=== PATIENT | male | born 1955 | race Caucasian/White ===

== ENCOUNTER 2024-10-01 06:52 | Day surgery (SDC) | payer OTHER, SELFPAY | END 2024-10-01 09:00 | disposition home or self-care (01) | LOC: CATH 06:52 | PROVIDERS: ATTENDING PHYSICIAN Internal Medicine Cardiovascular Disease; FAMILY PHYSICIAN Family Medicine; OTHER PHYSICIAN Internal Medicine Cardiovascular Disease | DX: I48.0 Paroxysmal atrial fibrillation (principal); I48.92 Unspecified atrial flutter; I08.1 Rheumatic disorders of both mitral and tricuspid valves; I10 Essential (primary) hypertension; E78.5 Hyperlipidemia, unspecified; G47.33 Obstructive sleep apnea (adult) (pediatric); E66.9 Obesity, unspecified; Z68.37 Body mass index [BMI] 37.0-37.9, adult; Z87.891 Personal history of nicotine dependence; Z79.01 Long term (current) use of anticoagulants | CPT/HCPCS: 93312; 93320; 93325 ==

== ENCOUNTER 2024-10-05 07:52 | Day surgery (SDC) | payer OTHER, SELFPAY ==
[2024-09-15 09:31] VITALS: BMI 37.6
[2024-09-15 10:39] LABS: ALT (SGPT) 44 U/L (0-50); AST (SGOT) 38 U/L (17-59); Albumin 4.6 g/dl (3.5-5.0); Alkaline Phosphatase 52 U/L (38-126); Blood Urea Nitrogen 22 mg/dl (9-20); Calcium 9.7 mg/dl (8.4-10.2); Carbon Dioxide 24 mmol/L (22-30); Chloride 106 mmol/L (98-107); Estimated Creatinine Clearance 70 ml/min; Glucose 114 mg/dl (70-99); Magnesium 2.1 mg/dl (1.6-2.3); Potassium 4.8 mmol/L (3.5-5.1); Sodium 142 mmol/L (135-145); Total Bilirubin 1.4 mg/dl (0.2-1.3); Total Protein 7.2 g/dl (6.3-8.2); eGFR > 60.00
[2024-09-15 10:47] LABS: % Immature Granulocytes 0.4 % (0-0.5); % Lymphocytes 19.6 % (20.5-51.1); % Monocytes 7.2 % (1.7-9.3); % Neutrophils 68.8 % (42.2-75.2); Absolute Basophils 0.1 10^3/uL (0-0.2); Absolute Eosinophils 0.2 10^3/uL (0-0.7); Absolute Lymphocytes 1.6 10^3/uL (1.2-3.4); Absolute Monocytes 0.6 10^3/uL (0.1-0.6); Absolute Neutrophils 5.5 10^3/uL (1.4-6.5); Hematocrit 43.8 % (39.0-52.0); Hemoglobin 15.3 g/dL (13.0-18.0); Mean Corp Hgb Conc. 34.9 g/dL (33.0-37.0); Mean Corpuscular Hgb 32.4 pg (27.0-31.0); Mean Corpuscular Volume 92.8 fL (80.0-94.0); Mean Platelet Volume 9.6 fL (7.4-10.4); Nucleated Red Blood Cells % 0 % (-); Platelet Count 229 10^3/uL (130-400); Red Blood Cell Count 4.72 10^6/uL (4.70-6.10); Red Cell Dist. Width 13.1 % (11.5-14.5)
[2024-09-15 10:47] LABS: INR 1.09; PT 14.1 Sec (11.4-14.6)
[2024-10-05] VITALS (9 sets, daily range): BP systolic 132–178; BP diastolic 80–124; BMI 33.2
[2024-10-05 10:59] LABS: ACT-LR - POC 258 Seconds (116-155)
[2024-10-05 11:19] LABS: ACT-LR - POC 289 Seconds (116-155)
--- NOTE | 2024-10-05 11:38 | ITS.CL.ABL ---
Level Vial Curvature Gauger - Ablation
Ablation
Procedure Report:
ELECTROPHYSIOLOGY ABLATION STUDY
�
DATE:: October 05, 2024�����������������������������REFERRING: Dr. Bakari Barbosa
�
INDICATION: Persistent supraventricular tachycardia in the form of atrial fibrillation.��Some tracings suggest atypical atrial flutter in addition to atrial fibrillation on outpatient clinical ECGs
�
HISTORY: See H and P.��As above
�
ANTIARRHYTHMIC DRUG: Metoprolol
�
PRE-PROCEDURE MABEL: No atrial thrombus on intracardiac ultrasound and preablation MABEL
�
PRESENTING RHYTHM: Atrial fibrillation
�
'TIME-OUT':��called and confirmed.
�
SEDATION/ANESTHESIA:��provided via the anesthesia department using general anesthesia (LMA).
�
INTRAVENOUS/ARTERIAL ACCESS:
Right femoral venous - 8Fr
Left femoral venous - 8 Fr, 6 Fr
Vascade vascular closure to each access site. Part of the collagen plug on the right femoral vein device came back with device removal and manual pressure was also held for 15 minutes.
Ultrasound guidance for bilateral femoral vein access was utilized by me to obtain access with demonstration of normal anatomy
CHADS-VASC Score:
�
HAS-Bled Score
�
PROCEDURE:
1.��A decapolar CS catheter was placed within the CS for mapping and pacing.��This was also used as the reference catheter for the 3-D map.
�
2. The intracardiac ultrasound catheter was positioned in the RA to identify the FO for targeting of transseptal puncture, assist��in identification of the pulmonary vein ostia, monitoring pre and post ablation pulmonary vein flow velocities,
monitoring for 'bubble' formation during RF application as a sign of thermal injury,��and to monitor for pericardial effusion during mapping and ablation procedure.���Left atrial size, LV ejection fraction, and pulmonary vein flows were monitored
pre and post ablation procedure. The other valves were inspected and found to be free of significant regurgitation or stenosis. There was a small pericardial effusion at the beginning of the procedure and there was no change in the pericardial
effusion post procedure. This effusion was seen on intracardiac ultrasound primarily in the posterior AV groove.
�
3.��Half of the calculated heparin bolus was administered prior to the first transeptal puncture.��Transseptal puncture was performed to diagnose RA and LA pressure so that safety of LA mapping and ablation could be further assessed, and to access
the left atrium and pulmonary veins for mapping and ablation.��This entailed advancing an 14 Russian Contour sheath and needle dilator apparatus was brought to the superior vena cava and withdrawing both (monitoring intracardiac ultrasound,
fluoroscopy and tip pressure) with the tip oriented toward the atrial septum.��The fossa ovalis was engaged (indicated by sudden displacement of the sheath tip as well as tenting of the fossa seen on intracardiac ultrasound).��Left atrial access
required a pass with the Brockenbrough needle extended.��Left atrial catheter position was confirmed by pressure monitoring (RA mean pressure 8 mm Hg and LA mean presure 12 mm Hg), LA saturation (99%),��as well as fluoroscopy.��The sheath was
advanced over the dilator and positioned in the left atrium.��This procedure was repeated for the Agilis sheath.��The remainder of the calculated heparin bolus was administered and heparin was
infused to maintain ACT at 300 -350 seconds throughout the case.
�
4.��RA pacing was performed via the proximal decapolar poles and LA pacing was performed via the distal decapolr poles.
�
5. A quadrapolar catheter was first positioned at the His position for His Bundle recording which was tagged via the 3-D Navex sytem, and then passed to the RVA for RV pacing and recording.
�
6. 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
�
7.��Next, a 3-D map was created using Navex.���A 3-D reconstructed CT image was compared to the 3-D Navex map to assist in anatomic interpretation, mapping and ablation.��The CT image and the NavX image were fused.
�
8. 93 lesions were given to the pulmonary veins and the left atrial posterior wall. During ablation of the left atrial posterior wall the patient converted from persistent atrial fibrillation to sinus rhythm. Entrance block was achieved in all 5
pulmonary veins and the posterior wall and then exit block was confirmed in all 5 pulmonary veins and left atrial posterior wall with the multipolar grid catheter. EP study down to left atrial refractoriness with extrastimuli and burst pacing did
not induce any other tachyarrhythmia and as such no additional ablation was performed.
�
9. An RF line was also placed at the IVC-TVA isthmus to interupt the potential typical atrial flutter circuit.��At the end of RF at this site, pacing from the lateral side of the line and the medial side of the line was performed to evaluate for
bidirectinal block.
�
TOTAL FLOURO TIME: 15.6 minutes
�
TOTAL RF DURATION: 0 minutes
�
REVERSAL OF HEPARIN: 35 mg of protamine, slow IV administration
�
COMPLICATIONS:
None
Intracardiac US shows no pericardial effusion post ablation.
�
SUMMARY:��
Complex left atrial mapping and ablation.
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
�
RECOMMENDATIONS:
1. Out of bed in 2 to 3 hours and consider same-day discharge
2. Resume anticoagulation
3.��Consider same-day discharge
4.� Continue metoprolol
�
Copy to: Dr. Bakari Barbosa
�
--- NOTE | 2024-10-05 14:29 | W.PN.UPDATE ---
Update Note
Progress Note Update
69 yo WM s/p PVI (same day). He denies cp, sob, pascual diet, EKG SR no ectopy, b/l groins VASCADE/Manual pressure c/d/i no HT, soft. He will continue OAC Eliquis and metoprolol. Activity restrictions reviewed. He will f/u Dr. Barbosa in 3 mo. He is for
d/c home after 330p if groins remain stable and voiding.
SUMMARY:��
Complex left atrial mapping and ablation.
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
�
RECOMMENDATIONS:
1. Out of bed in 2 to 3 hours and consider same-day discharge
2. Resume anticoagulation
3.��Consider same-day discharge
4.� Continue metoprolol
�
Copy to: Dr. Bakari Barbosa
== END 2024-10-05 15:50 | disposition home or self-care (01) ==
LOC: CATH 07:52
PROVIDERS: ATTENDING PHYSICIAN Internal Medicine Cardiovascular Disease; FAMILY PHYSICIAN Family Medicine; OTHER PHYSICIAN Internal Medicine Cardiovascular Disease
DX: I48.0 Paroxysmal atrial fibrillation (principal); I48.4 Atypical atrial flutter; Z79.899 Other long term (current) drug therapy; Z79.01 Long term (current) use of anticoagulants; E66.9 Obesity, unspecified; Z68.37 Body mass index [BMI] 37.0-37.9, adult; I10 Essential (primary) hypertension; E78.5 Hyperlipidemia, unspecified; G47.33 Obstructive sleep apnea (adult) (pediatric); Z87.891 Personal history of nicotine dependence; Z82.49 Family history of ischemic heart disease and other diseases of the circulatory system; Z82.3 Family history of stroke
CPT/HCPCS: C1732; C1894; C1769; C1892; C1759; 36415; 75572; 80053; 83735; 85025; 85347; 85610; 86850; 86900; 86901; 93005; 93656; C1730; C1733; C1760; C1766; Q9967

== ENCOUNTER 2024-10-25 03:22 | Emergency (ER) | payer OTHER, SELFPAY ==
[2024-10-25] VITALS (9 sets, daily range): BP systolic 164–192; BP diastolic 85–106; BMI 36.6
--- NOTE | 2024-10-25 03:41 | ED.GENMED ---
History of Present Illness
<SHAHID Arvizu - Last Filed: 10/25/24 04:17>
General
Chief Complaint: Cardiac Symptoms
Source: patient
Time Seen by Provider: 10/25/24 03:29
Nursing documentation reviewed up to this point in time: agreed with
History of Present Illness
History of Present Illness:
Pt is a 69 yo M with a history of a-fib, HTN, HLD, who presents to the emergency department tonight with shortness of breath and chest pain. Pt states that the symptoms began around 1:30am. He states that the pain is located in the center of his
chest along his sternum and is non-radiating. He states the pain is a 4/10 and states that it is constant. He reports that he got up out of bed and walked around and it seems to help alleviate the pain a bit. He denies taking any OTC pain
medication. Pt reports that he had similar symptoms over the weekend in the morning. Patient's states that he took famotidine during the previous episode which provided relief. He reports that this feels different than when he had a-fib
previously. He denies DENT, dizziness, palpitations.
Pt had an ablation for a-fib on 10/05 and has been taking 5mg Eliquis BID.
Review of Systems
<SHAHID Arvizu - Last Filed: 10/25/24 04:17>
Review of Systems
Allergies reviewed?: Yes
Constitutional: Reports no symptoms
EENT: Reports no symptoms
Respiratory: Reports no symptoms
Cardiac: Reports chest pain and other (shortness of breath)
ABD/GI: Reports no symptoms
: Reports no symptoms
Neurological: Reports no symptoms
Phy Exam
<SHAHID Arvizu - Last Filed: 10/25/24 04:17>
General Physical Exam
General Presentation: well appearing and no apparent distress
General age: appears stated age
General Skin: warm
General Habitus: normal
General Mental: alert
General Hydration: appears well hydrated
Cardiovascular Exam
Cardiovascular Exam: regular rate/rhythm and other (no pain to palpation of anterior chest)
Pulmonary Exam
Pulmonary Exam: lungs clear
Gastrointestinal Exam
Gastrointestinal Exam: normal bowel sounds, non tender, soft and non distended
Scores
<Ervin Brewer DO - Last Filed: 10/25/24 06:56>
Heart Score for Chest Pain Patients
STEMI patient?: No
History: Moderately Suspicious
ECG: Normal
Age: >/= 65 years
Risk Factors: 1 or 2 Risk Factors
Troponin: </= Normal Limit
Heart Score for Chest Pain Patients: 4
Heart Score Risk: 20.3% MACE over next 6 weeks
<Ace Saha MD - Last Filed: 10/26/24 08:49>
Heart Score for Chest Pain Patients
Heart Score for Chest Pain Patients: 4
Heart Score Risk: 20.3% MACE over next 6 weeks
Course
<SHAHID Arvizu - Last Filed: 10/25/24 04:17>
Orders/Labs/Results
Orders:
Orders
10/25/24 03:23
ECG [Electrocardiogram (*1)] Urgent
Reason for Study: Palpitations
EKG- Treatment ONCE
10/25/24 03:41
Complete Blood Count/With Diff Urgent
Comprehensive Metabolic Panel Urgent
Lipase Urgent
NT-proBNP Urgent
Troponin I Urgent
10/25/24 03:51
Chest [CR Chest - 2 Views ] Urgent
Comment:
Reason For Exam: sob
10/25/24 05:[address] [CT Chest Pe Study] Urgent
Comment:
Reason For Exam: sob hx ablasion 3 weeks ago
10/25/24 06:41
COVID-19 Antigen Urgent
Source: Nasal Swab
10/25/24 06:56
EKG- Treatment ONCE
10/25/24 07:26
Troponin I Urgent
10/25/24 07:30
Electrocardiogram (*1) Urgent
Reason for Study: Chest Pain
Abnormal Lab Results
10/25/24
03:41
RBC 4.58 L 10^6/uL
(4.70-6.10)
MCH 32.1 H pg
(27.0-31.0)
Absolute Neuts (auto) 7.4 H 10^3/uL
(1.4-6.5)
Absolute Monos (auto) 0.7 H 10^3/uL
(0.1-0.6)
Lymphocytes % 15.5 L %
(20.5-51.1)
Chloride 108 H mmol/L
(98-107)
BUN 22 H mg/dl
(9-20)
Glucose 119 H mg/dl
(70-99)
10/25/24 03:41
10/25/24 03:41
Vital Signs
Initial and Last Documented VS:
Initial Vital Signs
Temp Pulse Resp BP Pulse Ox
98.4 F 78 22 192/106 96
10/25/24 03:25 10/25/24 03:25 10/25/24 03:25 10/25/24 03:25 10/25/24 03:25
Last Documented Vital Signs
Temp Pulse Resp BP Pulse Ox
98.4 F 71 16 181/90 97
10/25/24 03:25 10/25/24 09:06 10/25/24 09:06 10/25/24 09:06 10/25/24 09:06
<Ervin Brewer DO - Last Filed: 10/25/24 06:56>
Orders/Labs/Results
Orders:
Orders
10/25/24 03:23
ECG [Electrocardiogram (*1)] Urgent
Reason for Study: Palpitations
EKG- Treatment ONCE
10/25/24 03:41
Complete Blood Count/With Diff Urgent
Comprehensive Metabolic Panel Urgent
Lipase Urgent
NT-proBNP Urgent
Troponin I Urgent
10/25/24 03:51
Chest [CR Chest - 2 Views ] Urgent
Comment:
Reason For Exam: sob
10/25/24 05:[address] [CT Chest Pe Study] Urgent
Comment:
Reason For Exam: sob hx ablasion 3 weeks ago
10/25/24 06:41
COVID-19 Antigen Urgent
Source: Nasal Swab
10/25/24 06:56
EKG- Treatment ONCE
10/25/24 07:26
Troponin I Urgent
10/25/24 07:30
Electrocardiogram (*1) Urgent
Reason for Study: Chest Pain
Abnormal Lab Results
10/25/24
03:41
RBC 4.58 L 10^6/uL
(4.70-6.10)
MCH 32.1 H pg
(27.0-31.0)
Absolute Neuts (auto) 7.4 H 10^3/uL
(1.4-6.5)
Absolute Monos (auto) 0.7 H 10^3/uL
(0.1-0.6)
Lymphocytes % 15.5 L %
(20.5-51.1)
Chloride 108 H mmol/L
(98-107)
BUN 22 H mg/dl
(9-20)
Glucose 119 H mg/dl
(70-99)
10/25/24 03:41
10/25/24 03:41
Vital Signs
Initial and Last Documented VS:
Initial Vital Signs
Temp Pulse Resp BP Pulse Ox
98.4 F 78 22 192/106 96
10/25/24 03:25 10/25/24 03:25 10/25/24 03:25 10/25/24 03:25 10/25/24 03:25
Last Documented Vital Signs
Temp Pulse Resp BP Pulse Ox
98.4 F 71 16 181/90 97
10/25/24 03:25 10/25/24 09:06 10/25/24 09:06 10/25/24 09:06 10/25/24 09:06
<Ace Saha MD - Last Filed: 10/26/24 08:49>
Orders/Labs/Results
Orders:
Orders
10/25/24 03:23
ECG [Electrocardiogram (*1)] Urgent
Reason for Study: Palpitations
EKG- Treatment ONCE
10/25/24 03:41
Complete Blood Count/With Diff Urgent
Comprehensive Metabolic Panel Urgent
Lipase Urgent
NT-proBNP Urgent
Troponin I Urgent
10/25/24 03:51
Chest [CR Chest - 2 Views ] Urgent
Comment:
Reason For Exam: sob
10/25/24 05:[address] [CT Chest Pe Study] Urgent
Comment:
Reason For Exam: sob hx ablasion 3 weeks ago
10/25/24 06:41
COVID-19 Antigen Urgent
Source: Nasal Swab
10/25/24 06:56
EKG- Treatment ONCE
10/25/24 07:26
Troponin I Urgent
10/25/24 07:30
Electrocardiogram (*1) Urgent
Reason for Study: Chest Pain
Abnormal Lab Results
10/25/24
03:41
RBC 4.58 L 10^6/uL
(4.70-6.10)
MCH 32.1 H pg
(27.0-31.0)
Absolute Neuts (auto) 7.4 H 10^3/uL
(1.4-6.5)
Absolute Monos (auto) 0.7 H 10^3/uL
(0.1-0.6)
Lymphocytes % 15.5 L %
(20.5-51.1)
Chloride 108 H mmol/L
(98-107)
BUN 22 H mg/dl
(9-20)
Glucose 119 H mg/dl
(70-99)
10/25/24 03:41
10/25/24 03:41
Vital Signs
Initial and Last Documented VS:
Initial Vital Signs
Temp Pulse Resp BP Pulse Ox
98.4 F 78 22 192/106 96
10/25/24 03:25 10/25/24 03:25 10/25/24 03:25 10/25/24 03:25 10/25/24 03:25
Last Documented Vital Signs
Temp Pulse Resp BP Pulse Ox
98.4 F 71 16 181/90 97
10/25/24 03:25 10/25/24 09:06 10/25/24 09:06 10/25/24 09:06 10/25/24 09:06
<SHAHID Arvizu - Last Filed: 10/25/24 04:17>
MDM/Problems Addressed
Differential Diagnosis Includes:
A-fib, [place], acute pancreatitis
<SHAHID Arvizu - Last Filed: 10/25/24 04:17>
*Critical Care Note
Total Time (30-74mins, 75-104mins- exclusive of procedures): Not Applicable
<Ervin Brewer DO - Last Filed: 10/25/24 06:56>
*Radiology
Radiology exam reviewed: radiology read reviewed
<Ace Saha MD - Last Filed: 10/26/24 08:49>
Update Note
Update Note:
0900... Patient totally asymptomatic. Repeat EKG negative. Repeat troponin stable. Minimal change but not significant, especially given no symptoms at this time. d/c to f/u
ED Attending Note
<SHAHID Arvizu - Last Filed: 10/25/24 04:17>
-
Portions of this chart may have been created with voice recognition software.� Occasional wrong word or��sound alike� substitutions may have occurred due to the inherent limitations of voice recognition software.
<Ervin Brewer DO - Last Filed: 10/25/24 06:56>
ED Attending Note
Patient seen and examined by attending physician: Yes
I performed the substantive portion of visit, reviewed & personally made and approve the management plan that is documented in note by myself or REBECCA.: Yes
ED Attending Note:
This a pleasant 69-year-old male that presents to the emergency department with dyspnea on exertion that was present beginning yesterday. At 1:30 in the morning he had palpitations was reminiscent of his previous atrial fibrillation. Patient was
recently seen by [facility] synchronizer and had an ablation performed. Patient states he is feeling much better since the ablation. Patient had similar episodes in the past and has taken famotidine which did provide some relief. Patient
states that this pain is different than previous palpitations experience with atrial fibrillation. Patient was seen in conjunction with the PA student. I have reviewed and agree with the history and treatment plan presented. On my independent
physical exam, patient is awake, alert, and oriented x3 minimal acute distress. Heart is regular rate and rhythm. Lungs are clear to auscultation bilaterally with no wheezes rales or rhonchi present. Abdomen soft nontender nondistended. Good
bowel sounds in 4 quadrants, moves all 4 extremities. Skin is warm and dry. Patient mentating appropriately.
Vital signs are stable. Patient not hypoxic
Nursing note reviewed. I agree with nursing documentation up to this point in time.
Home Meds and allergies reviewed.
NUMBER AND COMPLEXITY OF PROBLEMS ADDRESSED AT THE ENCOUNTER
� Chronic conditions affecting care:
� Acute Exacerbation and/or Progression of Chronic Illness:
� Differential Diagnosis includes:
AMOUNT AND/OR COMPLEXITY OF DATA TO BE REVIEWED AND ANALYZED
I performed an independent evaluation of the following and my interpretation is:
EKG: Sinus rhythm rate of 74 with normal intervals, normal axis. No evidence acute ischemia present.
Pulse Ox: Not Hypoxic
Customer Contact Sales Associate: Sinus Rhythm
CT:
IMPRESSION:
No PE
Mild pulmonary edema and small pleural effusions. Groundglass opacity in the basal right lower lobe is probably atelectasis or alveolar edema, less likely infectious or inflammatory
New 8 mm groundglass nodule in the left upper lobe (401/25).
No pneumothorax
No thoracic aortic aneurysm
Mild cardiomegaly
Partial left atrial appendage opacification; mixing artifact versus thrombus. Similar appearance on the comparison study. Consider follow-up echocardiography.
X-rays:
Ultrasound:
Laboratory Studies: Negative first troponin
Other:
Review of other/old records:
Clinical information was obtained by an independent historian:
Prescriptions/Medications Considered but not given:
Further testing considered but not performed:
RISK OF COMPLICATIONS AND/OR MORBIDITY OR MORTALITY OF PATIENT MANAGEMENT
Social determinants of health affecting care: Good Social Support
Discussion with other providers: Spoke with Dr. Pierce who would like to be notified if the second troponin is elevated if not patient can follow-up in the office.
Escalation of care including admission/observation vs risk of discharge considered: After being observed in the emergency department, patient is stable for discharge.
CRITICAL CARE NOTE: NA
Total Time (exclusive of procedures):
Update:
Discharge Plan
Departure
Patient Disposition: Home (Routine Discharge)
Date of Disposition: 10/25/24
Time of Disposition: 09:00
Patient with high blood pressure during this ER visit?: Yes
Discharge Problem:
Chest pain
Instructions: Chest Pain DCA Follow Up, BLOOD PRESSURE
Prescriptions:
No Action
multivitamin Tablet
1 tab PO DAILY
losartan 50 mg Tablet
25 mg PO DAILY
sildenafil 50 mg Tablet
50 mg PO DAILY PRN (Reason: ED)
simvastatin 20 mg Tablet
20 mg PO DAILY
metoprolol tartrate 50 mg Tablet
25 mg PO BID
Eliquis 5 mg Tablet
5 mg PO BID
Referrals:
Gabino Ortiz DO [Family Provider] -
Jamel Jhaveri MD [Active] - None
Activity Restrictions/Additional Instructions:
It was a pleasure meeting you and taking part in your care. We hope for your continued healing and wellness.
Please read discharge instructions in their entirety. However, they are for general education and may not describe your exact diagnosis at discharge. Information on your ER visit and medical conditions were discussed with you along with appropriate
follow up information...
If indicated, please take your medications as instructed and indicated on discharge paperwork.
Please schedule a follow up appointment as directed. Call to schedule an appointment
Please return to the emergency department with ANY change in, persisting, or worsening of symptoms. If any of your symptoms do not improve, or persist, or become more severe within 6-12 hours, please return to the emergency department for further
care.
Please return to the emergency department if you develop a headache, neck pain/stiffness, fever greater than 100.4F, chest pain, shortness of breath, persistent nausea, vomiting, slurred speech, difficulty walking, numbness/tingling, weakness, signs
of infection or any other symptoms that are worrisome to you.
If you have any questions or concerns please do not hesitate to call the Hospital at or E-mail me directly at [email or web address]
Interventions
Interventions:
*Risk Screen - Suicide Last Done: 10/25/24 03:25
*General Assessment Last Done: 10/25/24 03:32
*Neglect/Abuse Screening Last Done: 10/25/24 03:25
ED- Fall Risk Assessment Last Done: 10/25/24 06:54
*ED COVID-19 Vaccine History Last Done: 10/25/24 03:32
*Nursing Disposition Last Done: 10/25/24 09:07
ED- Pulmonary Assessment Last Done: 10/25/24 03:42
ED- Cardiac Assessment Last Done: 10/25/24 03:42
Discharge Date and Time
Discharge Date/Time: 10/25/24 09:10
Print Language: WOLOF
[2024-10-25 03:52] LABS: % Basophils 0.7 % (0-2); % Eosinophils 4.6 % (0-6); % Immature Granulocytes 0.4 % (0-0.5); % Lymphocytes 15.5 % (20.5-51.1); % Monocytes 6.9 % (1.7-9.3); % Neutrophils 71.9 % (42.2-75.2); Absolute Basophils 0.1 10^3/uL (0-0.2); Absolute Eosinophils 0.5 10^3/uL (0-0.7); Absolute Lymphocytes 1.6 10^3/uL (1.2-3.4); Absolute Monocytes 0.7 10^3/uL (0.1-0.6); Absolute Neutrophils 7.4 10^3/uL (1.4-6.5); Hematocrit 42.5 % (39.0-52.0); Hemoglobin 14.7 g/dL (13.0-18.0); Mean Corp Hgb Conc. 34.6 g/dL (33.0-37.0); Mean Corpuscular Hgb 32.1 pg (27.0-31.0); Mean Corpuscular Volume 92.8 fL (80.0-94.0); Mean Platelet Volume 8.8 fL (7.4-10.4); Nucleated Red Blood Cells % 0 % (-); Platelet Count 230 10^3/uL (130-400); Red Blood Cell Count 4.58 10^6/uL (4.70-6.10); Red Cell Dist. Width 13.1 % (11.5-14.5); White Blood Cell Count 10.3 10^3/uL (4.8-10.8)
[2024-10-25 04:13] LABS: ALT (SGPT) 45 U/L (0-50); AST (SGOT) 43 U/L (17-59); Albumin 4.2 g/dl (3.5-5.0); Alkaline Phosphatase 52 U/L (38-126); Blood Urea Nitrogen 22 mg/dl (9-20); Calcium 9.2 mg/dl (8.4-10.2); Carbon Dioxide 25 mmol/L (22-30); Chloride 108 mmol/L (98-107); Estimated Creatinine Clearance 67 ml/min; Glucose 119 mg/dl (70-99); Lipase 203 U/L (23-300); Potassium 4.7 mmol/L (3.5-5.1); Sodium 141 mmol/L (135-145); Total Bilirubin 1.1 mg/dl (0.2-1.3); Total Protein 6.8 g/dl (6.3-8.2); eGFR > 60.00
[2024-10-25 04:20] LABS: NT-proBNP 432 pg/ml; Troponin I 0.012 ng/ml
[2024-10-25 07:13] LABS: COVID-19 Antigen Negative (Negative)
[2024-10-25 07:53] LABS: Troponin I 0.014 ng/ml
== END 2024-10-25 09:10 | disposition home or self-care (01) ==
LOC: EMR 03:22
PROVIDERS: EMERGENCY PHYSICIAN Student in an Organized Health Care Education/Training Program; FAMILY PHYSICIAN Family Medicine
DX: R07.89 Other chest pain (principal); R06.09 Other forms of dyspnea; R00.2 Palpitations; R91.1 Solitary pulmonary nodule; J90 Pleural effusion, not elsewhere classified; Z11.52 Encounter for screening for COVID-19; J81.1 Chronic pulmonary edema; I48.91 Unspecified atrial fibrillation; I10 Essential (primary) hypertension; E78.5 Hyperlipidemia, unspecified; Z79.01 Long term (current) use of anticoagulants; Z86.16 Personal history of COVID-19; Z98.890 Other specified postprocedural states
CPT/HCPCS: 99285; 71046; 71275; 80053; 83690; 83880; 84484; 85025; 87811; 93005; Q9967

== ENCOUNTER 2025-01-14 14:07 | Emergency (ER) | payer OTHER, SELFPAY ==
[2025-01-14 14:15] VITALS: BP 153/90
[2025-01-14 14:40] LABS: % Basophils 0.6 % (0-2); % Immature Granulocytes 0.7 % (0-0.5); % Lymphocytes 15.7 % (20.5-51.1); % Monocytes 7.2 % (1.7-9.3); % Neutrophils 73.8 % (42.2-75.2); Absolute Basophils 0.1 10^3/uL (0-0.2); Absolute Eosinophils 0.2 10^3/uL (0-0.7); Absolute Immature Granulocytes 0.1 10^3/uL (0-0.05); Absolute Lymphocytes 1.8 10^3/uL (1.2-3.4); Absolute Monocytes 0.8 10^3/uL (0.1-0.6); Absolute Neutrophils 8.2 10^3/uL (1.4-6.5); Hematocrit 43.9 % (39.0-52.0); Mean Corp Hgb Conc. 34.2 g/dL (33.0-37.0); Mean Corpuscular Hgb 32.3 pg (27.0-31.0); Mean Corpuscular Volume 94.4 fL (80.0-94.0); Nucleated Red Blood Cells % 0 % (-); Platelet Count 298 10^3/uL (130-400); Red Blood Cell Count 4.65 10^6/uL (4.70-6.10); White Blood Cell Count 11.1 10^3/uL (4.8-10.8)
[2025-01-14 14:44] LABS: ALT (SGPT) 33 U/L (0-50); AST (SGOT) 33 U/L (17-59); Albumin 4.4 g/dl (3.5-5.0); Alkaline Phosphatase 67 U/L (38-126); Blood Urea Nitrogen 23 mg/dl (9-20); Calcium 9.3 mg/dl (8.4-10.2); Carbon Dioxide 27 mmol/L (22-30); Chloride 106 mmol/L (98-107); Glucose 116 mg/dl (70-99); Potassium 5.1 mmol/L (3.5-5.1); Sodium 140 mmol/L (135-145); Total Protein 7.1 g/dl (6.3-8.2); eGFR > 60.00
[2025-01-14 14:54] LABS: Troponin I < 0.012 ng/ml
[2025-01-14 17:24] VITALS: BP 156/91
[2025-01-14 17:25] VITALS: BP 158/82
[2025-01-14 17:27] VITALS: BP 152/99
[2025-01-14 17:34] VITALS: BP 152/99; BP 156/91; BP 158/82; PULSE 67; PULSE 69; PULSE 79
--- NOTE | 2025-01-14 17:53 | ED.GENMED ---
History of Present Illness
General
Chief Complaint: Fainting/Passed Out
Source: patient
Exam Limitations: none
Time Seen by Provider: 01/14/25 16:50
History of Present Illness
History of Present Illness:
69-year-old male with history of A-fib on Eliquis presents after syncopal episode today. He was standing up bending over to pick something up he stood up felt lightheaded and then per the passed out and hit his head on the floor. He came to
immediately after hitting his head. He was alert following this. There is no preceding chest pain. No shortness of breath. He denies neck pain. They noted a laceration to the left side of his forehead. He states at the current time he feels
asymptomatic.
Phy Exam
Physical Exam
Physical Exam:
General: Well-appearing male no acute respiratory distress
HEENT normocephalic 1.5 cm laceration left side of forehead superficial nature but does have a mild amount of bleeding. Pupils equal round reactive to light TMs normal
Heart: Regular rate and rhythm
Lungs: Clear no wheeze
Musculoskeletal exam: Cervical spine is nontender good range of motion all extremities
Neurologic exam: Alert normal gait conversing appropriately
Course
Orders/Labs/Results
Orders:
Orders
01/14/25
Electrocardiogram (*1) Stat
Comment: DONE CATH
01/14/25 14:09
Electrocardiogram (*1) Urgent
Reason for Study: Chest Pain
EKG- Treatment ONCE
01/14/25 14:18
CT Head W/o Iv Contrast Urgent
Comment:
Reason For Exam: fell hit face on ground. on bld thinner for afib
01/14/25 14:22
Complete Blood Count/With Diff Urgent
Comprehensive Metabolic Panel Urgent
Troponin I Urgent
01/14/25 17:33
Orthostatic VS- Treatment ONCE
Abnormal Lab Results
01/14/25
14:22
WBC 11.1 H 10^3/uL
(4.8-10.8)
RBC 4.65 L 10^6/uL
(4.70-6.10)
MCV 94.4 H fL
(80.0-94.0)
MCH 32.3 H pg
(27.0-31.0)
Abs Immat Gran (auto) 0.1 H 10^3/uL
(0-0.05)
Absolute Neuts (auto) 8.2 H 10^3/uL
(1.4-6.5)
Absolute Monos (auto) 0.8 H 10^3/uL
(0.1-0.6)
Immature Gran % 0.7 H %
(0-0.5)
Lymphocytes % 15.7 L %
(20.5-51.1)
BUN 23 H mg/dl
(9-20)
Glucose 116 H mg/dl
(70-99)
01/14/25 14:22
01/14/25 14:22
Vital Signs
Initial and Last Documented VS:
Initial Vital Signs
Temp Pulse Resp BP Pulse Ox
98.7 F 70 16 153/90 98
01/14/25 14:15 01/14/25 14:15 01/14/25 14:15 01/14/25 14:15 01/14/25 14:15
Last Documented Vital Signs
Temp Pulse Resp BP Pulse Ox
98.7 F 67 14 152/99 98
01/14/25 14:15 01/14/25 17:30 01/14/25 17:30 01/14/25 17:27 01/14/25 17:30
MDM/Problems Addressed
Differential Diagnosis Includes:
Syncope. Consider arrhythmia versus anemia versus orthostatic hypotension versus vasovagal episode
Patient describes lightheadedness after standing up and passing out I suspect more likely orthostatic change. EKG shows sinus rhythm although the patient does have a history of A-fib. Patient has been on the monitor there has been no arrhythmias
here. CT of the head was ordered to evaluate for any intracranial hemorrhage or fracture and this was negative.
The wound was closed
With 5-0 Prolene sutures 3 sutures were required to do so this was done after the wound was copiously irrigated anesthetized with 1% lidocaine. Orthostatic vital signs without significant change. He is ambulatory here without any complaints. No
indication for admission. Instructions to have sutures removed in 5 days and follow-up with his bell ringer
*Critical Care Note
Total Time (30-74mins, 75-104mins- exclusive of procedures): Not Applicable
ED Attending Note
-
Portions of this chart may have been created with voice recognition software.� Occasional wrong word or��sound alike� substitutions may have occurred due to the inherent limitations of voice recognition software.
Discharge Plan
Departure
Patient Disposition: Home (Routine Discharge)
Date of Disposition: 01/14/25
Time of Disposition: 17:56
Patient with high blood pressure during this ER visit?: No
Discharge Problem:
Laceration
Instructions: Syncope (Fainting) (DC), Laceration
Prescriptions:
No Action
multivitamin Tablet
1 tab PO DAILY
losartan 50 mg Tablet
25 mg PO DAILY
sildenafil 50 mg Tablet
50 mg PO DAILY PRN (Reason: ED)
simvastatin 20 mg Tablet
20 mg PO DAILY
metoprolol tartrate 50 mg Tablet
25 mg PO BID
Eliquis 5 mg Tablet
5 mg PO BID
Referrals:
UNKNOWN - PT DOES,NOT KNOW [Unknown Provider] -
Activity Restrictions/Additional Instructions:
Have sutures removed in 5 to 7 days. Return here for worsening symptoms otherwise follow-up with your bell ringer
Interventions
Interventions:
*Risk Screen - Suicide Last Done: 01/14/25 14:15
*General Assessment Last Done: 01/14/25 17:20
*Neglect/Abuse Screening Last Done: 01/14/25 14:15
*ED COVID-19 Vaccine History Last Done: 01/14/25 17:20
ED- Cardiac Assessment Last Done: 01/14/25 17:20
ED- Neurological Assessment Last Done: 01/14/25 17:20
Discharge Date and Time
Print Language: SERBIAN
== END 2025-01-14 18:04 | disposition home or self-care (01) ==
LOC: EMR 14:07
PROVIDERS: Emergency Medicine; EMERGENCY PHYSICIAN Emergency Medicine; FAMILY PHYSICIAN Family Medicine
DX: S01.81XA Laceration without foreign body of other part of head, initial encounter (principal); W19.XXXA Unspecified fall, initial encounter; R55 Syncope and collapse; Z79.01 Long term (current) use of anticoagulants
CPT/HCPCS: 99285; 12011; 70450; 80053; 84484; 85025; 93005